=== PATIENT | male | born 1990 | race Caucasian/White ===

== ENCOUNTER 2020-05-26 17:59 | Emergency (ER) | payer OTHER ==
[~2020-05-26] VITALS: Ht 172.7 cm; Wt 68.0 kg
[2020-05-26 19:12] LABS: ABSOLUTE NEUTROPHILS 4.7 thou/uL (1.4-8.2); BASOPHILS 0.6 % (0.0-2.0); HEMOGLOBIN 14.7 gm/dL (14.0-18.0); LYMPHOCYTES 31.3 % (24.0-44.0); MCH 30.4 pg (26.0-34.0); MCHC 34.9 g/dL (28.0-37.0); MCV 87.1 fL (80.0-100.0); MONOCYTES 7.5 % (1.0-8.0); PLATELET COUNT 209 thou/uL (150-400); POLYS 58.6 % (36.0-66.0); RBC 4.82 mil/uL (4.50-6.00); RDW 13.6 % (10.5-14.5)
[2020-05-26 19:30] LABS: CALCIUM 7.9 mg/dL (8.5-10.1); CREATININE 0.8 mg/dL (0.7-1.3); POTASSIUM 3.4 mmol/L (3.5-5.1)
[2020-05-26 19:34] LABS: ALBUMIN 3.8 g/dL (3.4-5.0); TOTAL BILIRUBIN 0.3 mg/dL (0.2-1.0); TOTAL PROTEIN 6.6 g/dL (6.4-8.2)
[2020-05-26] MEDS ORDERED: PRILOSEC OTC20 MG PO (19:57)
[2020-05-26] MEDS ORDERED: ZOFRAN ODT4 MG PO (19:57)
[2020-05-26 20:04] VITALS: BP 112/69
--- NOTE | 2020-05-27 07:28 | EKG ---
[facility] [place] [address] ELECTROCARDIOGRAM REPORT Name: MURALI BOTELLO Room #: DEP [facility].#: [id number] Admission: 05/26/20 Attend Phys: Discharge: 05/26/20 Date of : 88 Report #: [id number] THIS REPORT FOR: cc: FAM - No family physician/PCP FAM - No family physician/PCP Bin Iyer MD [facility] THIS REPORT FOR: //name// [facility] ED Test Date: 2020-05-26 Test Time: 18:07:20 Pat Name: MURALI BOTELLO Department: Room: Gender: [employer] Matcher: [facility] : 1990 Requested By: Nikki Hernandez Order Number: [id number] MD: Bin Iyer Measurements Intervals [place] Rate: 75 P: 77 MT: 160 QRS: -8 QRSD: 108 T: 42 QT: 384 QTc: 429 Interpretive Statements Sinus rhythm ST elev, probable normal early repol pattern No previous ECG available for comparison Electronically Signed On 05-27-2020 7:28:34 CDT by Bin Iyer [email or web address] <ELECTRONICALLY SIGNED> By: Bin Iyer MD, FAC 05/27/2028 06 06 Bin Iyer MD, [facility] /EPI
== END 2020-05-26 20:05 | disposition home or self-care (01) ==
LOC: ER 17:59
PROVIDERS: Emergency Medicine
DX: R11.2 Nausea with vomiting, unspecified (principal); R10.13 Epigastric pain; F17.210 Nicotine dependence, cigarettes, uncomplicated